=== PATIENT | male | born 1955 | race Caucasian/White ===

== ENCOUNTER 2020-01-11 08:43 | Emergency (ER) | payer OTHER, SELFPAY ==
[2020-01-11 08:53] VITALS: BMI 30.5
--- NOTE | 2020-01-11 08:55 | ED_ITS ---
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
[2020-01-11 08:57] VITALS: BP 176/65; PULSE 67; RESP 18; TEMP 36.8; O2SAT 95
[2020-01-11 09:08] VITALS: O2SAT 97
--- NOTE | 2020-01-11 09:10 | XR_ITS ---
WS: [id number] PORTABLE CHEST HISTORY: cough/congestion COMPARISON: None available. Lungs are clear and well expanded. No pleural effusion or pneumothorax. Cardiac size: Normal. Mediastinum/Aorta: Mild atherosclerosis aorta. No osseous abnormality seen. XR/XR chest 1V portable [id number] IMPRESSION: Mild atherosclerosis aorta. No pneumonia.
--- NOTE | 2020-01-11 09:20 | W.ED.URI ---
HPI - URI/Sore Throat General: Chief Complaint: General Medical Stated Complaint: COUGH AND SOB Time Seen by Provider: 01/11/20 08:59 Source: patient Mode of arrival: ambulatory Limitations: no limitations History of Present Illness: HPI Narrative: Patient is a very nice 64-year-old male who presents to ED today with complaints of a runny nose that initially began about a week ago. He is also been having some sinus pain/pressure. He states a few days later he began developing a productive cough with white phlegm. He states he does have a history of allergies. He has been using an albuterol inhaler as needed and states this has been helping. He was sick recently with similar symptoms about a month ago [facility] He has not been running fevers. He does not have any sick contacts. No recent travel outside the [facility]-states he did travel to [facility] recently for work ([employer]). MD elicited complaint: cough, rhinorrhea, nasal congestion and sinus pain Severity: mild Description of mucous: clear and other (white) Able to tolerate fluids by mouth: Yes Exacerbating factors: nothing Relieving factors: nothing Associated symptoms: Reports nasal congestion and sinus pain; Deny abdominal pain, chills, chest pain, diarrhea, epistaxis, ear or mastoid pain, fever(s), headache(s), nausea or vomiting Treatments prior to arrival: none Review of Systems Const: Denies: fever, chills, body aches, change in appetite, change in weight, fatigue or malaise Eyes: Denies: change in vision, blurry vision, photophobia, floaters or seeing flashes ENMT: Reports: nasal discharge, nasal congestion and facial/sinus pain; Denies: throat pain, enlarged tonsils, painful swallowing, hoarseness, oral sores/lesions, ear pain, ear discharge, nasal obstruction or nose bleeds Card: Denies: chest pain, palpitations, irregular heart rhythm, edema, swelling of feet/ankles, lightheadedness, syncope, pre-syncope, shortness of breath on exertion or shortness of breath when lying down Resp: Reports: productive cough and chest congestion; Denies: shortness of breath, wheezing, pain on inspiration or coughing up blood GI: Denies: abdominal pain, nausea, vomiting or diarrhea Musc: Denies: neck pain or back pain Skin/Breast: Denies: rash Neuro: Denies: headache, numbness in extremities, weakness in extremities or changes in sensation PFSH ED PFSH: Social History Smoking and tobacco status: former smoker Physical Exam Const: COMMON NORMALS: no apparent distress, average body habitus, oriented x3, no limitations, healthy appearing, alert and well nourished HENMT: COMMON NORMALS: normocephalic, head/scalp atraumatic, hearing grossly normal bilaterally, external ears normal, EAC's normal, TM's normal bilaterally, external nose normal, nasal mucous membranes and turbinates normal, moist oral mucous membranes and oropharynx normal HEAD & SCALP: normal to inspection, normocephalic and atraumatic FACE & SINUS: normal facial exam and sinuses nontender NOSE: external nose normal, nares normal, nasal mucous membranes and turbinates normal and other (nasal congestion) EXTERNAL EAR: Yes external ears normal EXTERNAL AUDITORY CANAL: EAC's normal TYMPANIC MEMBRANE: TM's normal bilaterally MOUTH: oral and palatal mucosa normal, lip normal and tongue normal THROAT: posterior oropharynx normal, tonsils normal and uvula midline Eye: COMMON NORMALS: PERRL, EOMs intact bilaterally and conjunctivae normal CONJUNCTIVA: Yes conjunctivae normal PUPIL: Yes PERRL Neck/C-Spine: COMMON NORMALS: no lymphadenopathy Resp: COMMON NORMALS: normal respiratory effort and clear to auscultation bilaterally AUSCULTATION: clear to auscultation bilaterally Cardio: COMMON NORMALS: regular rate and regular rhythm RATE: regular rate RHYTHM: regular rhythm Neuro: COMMON NORMALS: oriented x3 SENSORIUM/ORIENTATION: Yes alert Skin: COMMON NORMALS: no rashes or lesions noted GENERAL SKIN EXAM: no rashes or lesions noted Course Vital Signs: Vital signs: Vital Signs Temperature 98.2 F 01/11/20 08:57 Pulse Rate 67 01/11/20 08:57 Respiratory Rate 18 01/11/20 08:57 Blood Pressure 176/65 01/11/20 08:57 Pulse Oximetry 97 01/11/20 09:08 MDM - URI/Sore Throat MDM Narrative: Medical decision making narrative: Pt clinically looks well. His vitals are perfect. CXR with no acute disease. This is not an influenza/COVID-19 clinical picture. He doesn't met criteria for testing anyway. Will treat for allergies/URI and recommend self quarantine. Return to ED precautions given. Imaging Data^: CXR: Radiologist's impression: [address] [address] XRay Report Signed Patient: Malcolm Colon #: [id number] : 5Acct#:[id number] Age/Sex: 64 / MADM Date: 01/11/20 Loc: ERRoom/Bed: Attending Dr: Ordering Provider/Ordering MD: Ivis Dolan Date of Service: 01/11/20 Procedure(s): XR chest 1V portable [id number] Accession Number(s): [id number] Report Number: [id number] WS: [id number] PORTABLE CHEST HISTORY: cough/congestion COMPARISON: None available. Lungs are clear and well expanded. No pleural effusion or pneumothorax. Cardiac size: Normal. Mediastinum/Aorta: Mild atherosclerosis aorta. No osseous abnormality seen. XR/XR chest 1V portable [id number] IMPRESSION: Mild atherosclerosis aorta. No pneumonia. Dictated By:Stacey Elam DO Signed By:Stacey Elam DOSigned Date/Time:01/11/20927 DD/ 7 Discharge Plan Discharge Patient Disposition: Home, Self-Care Clinical Impression: Bronchitis Condition: Stable Prescriptions: New prednisone 10 mg tablet 60 mg PO DAILY 5 Days Qty: 30 RF: 0 albuterol sulfate 90 mcg/actuation HFA aerosol inhaler 2 inh INHALATION Q4H PRN (Reason: shortness of breath) Qty: 6.7 RF: 0 Claritin-D 24 Hour 10-240 mg tablet extended release 24 hr 1 tab PO DAILY Qty: 20 RF: 0 Discharge Orders: Discharge Order (Routine); Ordered 01/11/20 Ordered By: Ivis Dolan Referrals: Randall De La Rosa DO [Primary Care Provider] - Discharge Diet: Usual diet Discharge Activity: Increase activity as tolerated Patient Instructions: Upper Respiratory Infection (ED), Allergic Rhinitis (ED) Coding Level of Care Code ED Hospice Patient Care Secretary for Chg Fwd Exam Detailed
[2020-01-11 09:38] VITALS: BP 163/91; PULSE 65; O2SAT 95
== END 2020-01-11 09:38 | disposition home or self-care (01) ==
PROVIDERS: Emergency Provider Physician Assistant; Family Provider Emergency Medicine Emergency Medical Services; PCP Emergency Medicine Emergency Medical Services
DX: J40 Bronchitis, not specified as acute or chronic (principal); Z87.891 Personal history of nicotine dependence
CPT/HCPCS: 12345; 71045; 99281; 99282

== ENCOUNTER 2021-04-11 14:01 | Outpatient (CLI) | payer OTHER, SELFPAY ==
--- NOTE | 2021-04-11 14:15 | USCV_ITS ---
Malcolm Colon Age: 65 Gender: M : 1955 Exam Date: 04/11/2021 14:26 Ordering Phys: Tyra Ewing MD ([email or web address]) Technologist: Na Holly Exam Location: [facility] [place] Indication: non rheumatic BP: / HR: 71 Rhythm: Sinus Technical Quality: Adequate MEASUREMENTS (Male / Female) Normal Values 2D ECHO LV Diastolic Diameter PLAX 4.2 cm 4.2 - 5.9 / 3.9 - 5.3 cm LV Systolic Diameter PLAX 3.5 cm LV Chamber Size 3.3 cm IVS Diastolic Thickness 1.4 cm 0.6 - 1.0 / 0.6 - 0.9 cm IVS Systolic Thickness 2.0 cm LVPW Diastolic Thickness 1.2 cm 0.6 - 1.0 / 0.6 - 0.9 cm LVPW Systolic Thickness 1.5 cm RV Chamber Size 3.0 cm LVOT Diameter 2.1 cm LV Ejection Fraction 2D Teich 37.2 % LV Ejection Fraction MOD 2C 30.9 % LV Ejection Fraction 2C AL 33.0 % LA Diameter 4.0 cm LA Width 4.3 cm LA Height 4.2 cm RA Width 2.1 cm RA Height 3.9 cm Aorta at Sinotubular Diameter 3.5 cm M-MODE LV Diastolic Diameter MM 5.0 cm 4.2 - 5.9 / 3.9 - 5.3 cm LV Systolic Diameter MM 2.5 cm LV Ejection Fraction MM Teich 81.1 % IVS Diastolic Thickness MM 0.9 cm 0.6 - 1.0 / 0.6 - 0.9 cm IVS Systolic Thickness MM 1.7 cm LVPW Diastolic Thickness MM 1.5 cm 0.6 - 1.0 / 0.6 - 0.9 cm LVPW Systolic Thickness MM 2.6 cm Aortic Annulus Diameter 3.5 cm LA Ao Ratio MM 1.1 MV E Point Septal Separation 0.5 cm DOPPLER AV Peak Velocity 300.0 cm/s LVOT Peak Velocity 143.7 cm/s AV Area Cont Eq vti 1.6 cm squared AV Area Cont Eq pk 1.6 cm squared MV Area PHT 3.4 cm squared Mitral E to A Ratio 1.1 MV E' Velocity 46.5 cm/s Mitral E to MV E' Ratio 11.2 Mitral E to LV E' Lateral Ratio 14.1 Mitral E to LV E' Septal Ratio 9.4 TR Peak Velocity 222.8 cm/s TR Peak Gradient 19.9 mmHg TR Mean Velocity 182.0 cm/s TR Mean Gradient 14.0 mmHg TR Velocity Time Integral 68.6 cm TV Peak E Velocity 57.0 cm/s Right Atrial Pressure 3.0 mmHg Pulmonary Artery Systolic Pressu 22.9 mmHg PV Peak Velocity 84.0 cm/s RV Acceleration Time 0.1 s RV Ejection Time 0.3 s RV AcT/ET 0.4 FINDINGS Left Ventricle Normal left ventricular size and systolic function, EF 70%. No regional wall motion abnormalities. Mild left ventricular hypertrophy. Right Ventricle The right ventricle is normal in size and function. Right Atrium The right atrium is normal in size. Left Atrium The left atrium is normal in size. Mitral Valve No gross abnormalities noted Aortic Valve Mild aortic valve stenosis, mean gradient 16.5 mmHg, FAUSTO 1.6 cm squared. Mild aortic valve regurgitation. Peak velocity across the aortic valve is 3.07 m/s with a peak gradient of 38 and a mean gradient of 17 mmHg Tricuspid Valve Trace tricuspid valve regurgitation. Pulmonic Valve Pulmonic valve not well visualized. Pericardium Normal pericardium without effusion. Aorta Normal ascending aorta dimension. CONCLUSIONS Normal left ventricular size and systolic function, EF 70%. No regional wall motion abnormalities. Mild left ventricular hypertrophy. Mild aortic valve stenosis, mean gradient 16.5 mmHg, FAUSTO 1.6 cm squared. Mild aortic valve regurgitation. Peak velocity across the aortic valve is 3.07 m/s with a peak gradient of 38 and a mean gradient of 17 mmHg. Trace tricuspid valve regurgitation. There is no pericardial effusion. There are no intracardiac masses. Compared to the study from 06/16/2019, there is slight increase in the gradient across the aortic valve Dr Tyra Ewing MD [facility] (Electronically Signed) Final Date: 11 April 2021 17:07 S
--- NOTE | 2021-04-11 15:00 | USCV_ITS ---
Isaiah Malcolm Age: 65 Gender: M : 1955 Exam Date: 04/11/2021 14:46 Ordering Phys: Tyra Ewing MD ([email or web address] Technologist: Na Holly [place] [facility] [place]ication: STENOSIS OR OCCLUSION OF CAROTID ARTERIES Risk Factors: Previous Vascular Surgery: Right Brachial BP: / Left Brachial BP: / Right Left Velocity (cm/s) Spectral Plaque Velocity (cm/s) Spectral Plaque Syst/Diast Broadening Syst/Diast Broadening 109.20/32.00 Prox CCA 90.40 / 26.50 64.90/ 22.60 Mid CCA 73.70 / 21.60 79.20/ 28.70 Distal CCA 86.40 / 26.50 81.40/ 21.10 Prox ICA 63.40 / 27.70 77.60/ 21.10 Mid ICA 53.80 / 17.90 82.70/ 23.60 Distal ICA 54.60 / 24.30 152.30 ECA 83.50 1.28 ICA/CCA 0.86 Antegrade Vertebral Antegrade 33.70/ 9.90 cm/s 31.30/ 13.00 cm/s Tri Subclavian Tri 60.90 96.90 FINDINGS Minimal to moderate heterogeneous plaques at the bifurcations bilaterally. Intimal thickening and minimal plaques in the common carotid arteries bilaterally. Antegrade flow in the vertebral arteries bilaterally. Normal Doppler flow velocities in the external carotid and subclavian arteries bilaterally CONCLUSIONS Minimal to moderate heterogeneous plaques at the bifurcations bilaterally suggesting less than 50% stenosis. Intimal thickening and minimal plaques in the common carotid arteries bilaterally. Dr Tyra Ewing MD [facility] (Electronically Signed) Final Date: 12 April 2021 12:49 S
== END 2021-04-11 14:02 | disposition home or self-care (01) ==
PROVIDERS: PCP Emergency Medicine Emergency Medical Services; Visit Provider Internal Medicine Cardiovascular Disease
DX: I65.23 Occlusion and stenosis of bilateral carotid arteries (principal); I35.0 Nonrheumatic aortic (valve) stenosis
CPT/HCPCS: 80061; 93306; 93880

== ENCOUNTER 2021-07-14 08:34 | Outpatient (CLI) | payer OTHER, SELFPAY ==
--- NOTE | 2021-07-14 08:56 | MR_ITS ---
WS: [id number] MRI LUMBAR SPINE NONCONTRAST TECHNIQUE: Sagittal T1, T2 and STIR imaging. Axial T1 and T2 imaging. CLINICAL INFORMATION: CHRONIC BACK PAIN COMPARISON: None. FINDINGS: Mild lumbar curve. No acute compression. Disc space narrowing worse at L4-5. No high-grade central ca nal stenosis. L1-L2: Tiny left foraminal protrusion. Mild left foraminal narrowing. Mild facet arthropathy. L2-L3: Mild annular bulging with slight effacement of the ventral thecal sac. Small left foraminal pr otrusion with mild left foraminal narrowing. Right foramen is patent. Moderate facet arthropathy. L3-L4: Mild annular bulging. Spinal canal is patent. Moderate facet arthropathy. Foramen are patent. L4-L5: Mild annular bulging. Impingement on the traversing right L5 nerve root in the subarticular re cess. Right eccentric disc osteophyte complex with moderate right foraminal narrowing. Left foramen i s patent. Moderate facet arthropathy. L5-S1: Disc osteophytic ridging eccentric to the right. Spinal canal and foramen are patent. Mild fac et arthropathy. Visualized pelvic bony structures: Normal. Paravertebral soft tissues: Normal. MR/MR lumbar spine wo con* [id number] IMPRESSION: 1. Right eccentric disc osteophyte complex L4-5 impinges the traversing right L5 nerve root in the subarticular recess. Recommend correlation for right L5 ne rve root symptoms. 2. Right foraminal protrusion L4-5 contacts the exiting right L4 nerve root. R ecommend correlation for right L4 nerve root symptoms. 3. Tiny left foraminal protrusions L1-2 and L2-3 with mild left foraminal narr owing at these levels respectively. 4. Moderate facet arthropathy L3-L4 and L4-L5.
== END 2021-07-14 08:35 | disposition home or self-care (01) ==
PROVIDERS: PCP Emergency Medicine Emergency Medical Services; Visit Provider Emergency Medicine Emergency Medical Services
DX: Z01.89 Encounter for other specified special examinations (principal); M54.9 Dorsalgia, unspecified
CPT/HCPCS: 72148

== ENCOUNTER → 2021-07-30 09:20 | Outpatient (BNVA) | payer OTHER, SELFPAY | PROVIDERS: PCP Emergency Medicine Emergency Medical Services; Referring Provider Emergency Medicine Emergency Medical Services; Visit Provider Anesthesiology Pain Medicine | DX: G89.29 Other chronic pain (principal); M51.16 Intervertebral disc disorders with radiculopathy, lumbar region; M47.816 Spondylosis without myelopathy or radiculopathy, lumbar region; M79.604 Pain in right leg; I10 Essential (primary) hypertension; E78.2 Mixed hyperlipidemia | CPT/HCPCS: 99205 ==

== ENCOUNTER → 2021-08-05 12:42 | Outpatient (BNVA) | payer OTHER, SELFPAY | PROVIDERS: PCP Emergency Medicine Emergency Medical Services; Visit Provider Anesthesiology Pain Medicine | DX: G89.29 Other chronic pain (principal); M54.16 Radiculopathy, lumbar region | CPT/HCPCS: 64483; 64484; J1100; J3490 ==

== ENCOUNTER → 2021-08-19 12:46 | Outpatient (BNVA) | payer OTHER, SELFPAY | PROVIDERS: PCP Emergency Medicine Emergency Medical Services; Visit Provider Anesthesiology Pain Medicine | DX: G89.29 Other chronic pain (principal); M54.16 Radiculopathy, lumbar region | CPT/HCPCS: 64483; 64484; J1100; J3490 ==

== ENCOUNTER → 2021-09-02 09:53 | Outpatient (BNVA) | payer OTHER, SELFPAY | PROVIDERS: PCP Emergency Medicine Emergency Medical Services; Visit Provider Anesthesiology Pain Medicine | DX: G89.29 Other chronic pain (principal); M51.16 Intervertebral disc disorders with radiculopathy, lumbar region; M47.816 Spondylosis without myelopathy or radiculopathy, lumbar region | CPT/HCPCS: 99213 ==

== ENCOUNTER → 2021-09-16 14:16 | Outpatient (BNVA) | payer OTHER, SELFPAY | PROVIDERS: PCP Emergency Medicine Emergency Medical Services; Visit Provider Anesthesiology Pain Medicine | DX: M70.71 Other bursitis of hip, right hip (principal); Y93.9 Activity, unspecified | CPT/HCPCS: 20610; 77002; J1030; J3490 ==

== ENCOUNTER → 2021-09-30 11:16 | Outpatient (BNVA) | payer OTHER, SELFPAY | PROVIDERS: PCP Emergency Medicine Emergency Medical Services; Visit Provider Anesthesiology Pain Medicine | DX: G89.29 Other chronic pain (principal); M51.16 Intervertebral disc disorders with radiculopathy, lumbar region; M47.816 Spondylosis without myelopathy or radiculopathy, lumbar region; M79.604 Pain in right leg; Z87.891 Personal history of nicotine dependence | CPT/HCPCS: 99212 ==

== ENCOUNTER 2021-10-29 09:33 | Outpatient (CLI) | payer OTHER, SELFPAY ==
--- NOTE | 2021-10-29 | CT_ITS ---
WS: [id number] CT CHEST WITH INTRAVENOUS CONTRAST HISTORY: PULMONARY NODULES TECHNIQUE: Contiguous 5 mm axial imaging performed on the thorax. Coronal and sagittal reformats are submitted. All CT scans at [facility] use at least one of these dose optimization techniques: automated exposure control; mA and/or kV adjustment per patient size (includes targeted exams where dose is matched to clinical indication); or iterative reconstruction. CONTRAST: Omnipaque 300; 95 mL IV. DLP: 1069.26 mGycm COMPARISON: Chest radiograph 01/11/2020. Lungs and central airway: There are a few tiny micronodules throughout both lungs. No suspicious or e nlarged mass or nodule. There are changes of mild emphysema. Pleura: Normal. No pleural effusion. Heart and pericardium: Normal size heart with no pericardial effusion. Mediastinum and scarlet: Single indeterminate 10 mm RIGHT hilar lymph node. No mediastinal widening. Vessels: Mild atherosclerosis aorta. Mild pulmonary hypertension. Chest wall and lower neck: No soft tissue masses. Upper abdomen: Mildly contracted gallbladder. Visualized liver is normal. Osseous structures: No destructive process. CT/CT chest w con* [id number] IMPRESSION: 1. No suspicious pulmonary mass or adenopathy. No prior studies or history sharon ilable to indicate location of mass. 2. Mild emphysema.
[2021-10-29 10:38] LABS: Blood Urea Nitrogen 18 mg/dL (8-23)
[2021-10-29] MEDS: iohexol 300 mg/mL 100 mL Btl IV (14:51)
== END 2021-10-29 09:34 | disposition home or self-care (01) ==
PROVIDERS: PCP Emergency Medicine Emergency Medical Services; Visit Provider Emergency Medicine Emergency Medical Services
DX: R91.1 Solitary pulmonary nodule (principal); J43.9 Emphysema, unspecified
CPT/HCPCS: 71260; 82565; 84520; Q9967

== ENCOUNTER → 2022-01-07 10:15 | Outpatient (BNVA) | payer OTHER, SELFPAY | PROVIDERS: PCP Emergency Medicine Emergency Medical Services; Referring Provider Emergency Medicine Emergency Medical Services; Visit Provider Anesthesiology Pain Medicine | DX: G89.29 Other chronic pain (principal); M51.16 Intervertebral disc disorders with radiculopathy, lumbar region; M47.816 Spondylosis without myelopathy or radiculopathy, lumbar region; M25.551 Pain in right hip; M79.604 Pain in right leg; Z87.891 Personal history of nicotine dependence | CPT/HCPCS: 99214 ==

== ENCOUNTER → 2022-01-12 14:00 | Outpatient (BNVA) | payer OTHER, SELFPAY | PROVIDERS: PCP Emergency Medicine Emergency Medical Services; Visit Provider Anesthesiology Pain Medicine | DX: M25.551 Pain in right hip (principal); Y93.9 Activity, unspecified; F17.210 Nicotine dependence, cigarettes, uncomplicated; M70.71 Other bursitis of hip, right hip | CPT/HCPCS: 20610; 77002; J1030; J3490 ==

== ENCOUNTER → 2022-01-26 10:08 | Outpatient (BNVA) | payer OTHER, SELFPAY | PROVIDERS: PCP Emergency Medicine Emergency Medical Services; Visit Provider Anesthesiology Pain Medicine | DX: G89.29 Other chronic pain (principal); M51.16 Intervertebral disc disorders with radiculopathy, lumbar region; M47.816 Spondylosis without myelopathy or radiculopathy, lumbar region; M79.604 Pain in right leg; Z87.891 Personal history of nicotine dependence | CPT/HCPCS: 99214 ==

== ENCOUNTER → 2022-02-03 13:52 | Outpatient (BNVA) | payer OTHER, SELFPAY | PROVIDERS: PCP Emergency Medicine Emergency Medical Services; Visit Provider Anesthesiology Pain Medicine | DX: G89.29 Other chronic pain (principal); Z87.891 Personal history of nicotine dependence; M47.816 Spondylosis without myelopathy or radiculopathy, lumbar region | CPT/HCPCS: 64493; 64494; 64495; J3490 ==

== ENCOUNTER → 2022-02-17 11:44 | Outpatient (BNVA) | payer OTHER, SELFPAY | PROVIDERS: PCP Emergency Medicine Emergency Medical Services; Visit Provider Anesthesiology Pain Medicine | DX: G89.29 Other chronic pain (principal); M51.16 Intervertebral disc disorders with radiculopathy, lumbar region; M47.816 Spondylosis without myelopathy or radiculopathy, lumbar region; M79.604 Pain in right leg; Z87.891 Personal history of nicotine dependence | CPT/HCPCS: 99212 ==

== ENCOUNTER → 2022-03-19 15:17 | Outpatient (BNVA) | payer OTHER, SELFPAY | PROVIDERS: PCP Emergency Medicine Emergency Medical Services; Visit Provider Internal Medicine Cardiovascular Disease | DX: I65.23 Occlusion and stenosis of bilateral carotid arteries (principal); I35.0 Nonrheumatic aortic (valve) stenosis; I10 Essential (primary) hypertension; G47.33 Obstructive sleep apnea (adult) (pediatric); E78.2 Mixed hyperlipidemia; Z99.89 Dependence on other enabling machines and devices; Z87.891 Personal history of nicotine dependence | CPT/HCPCS: 99214 ==

== ENCOUNTER 2022-06-01 07:24 | Outpatient (CLI) | payer OTHER, SELFPAY ==
--- NOTE | 2022-06-01 07:35 | USCV_ITS ---
Isaiah Malcolm Age: 66 Gender: M : 1955 Exam Date: 06/01/2022 07:54 Ordering Phys: Randall De La Rosa DO Technologist: SAVANNAH [place] [facility] [place]: aaa HISTORY: Diameter (cm) AP x Transverse x Length Velocity (cm/s) Waveform Prox Aorta: 1.83 x 2.21 x 81.80 Biphasic Mid Aorta: 1.99 x 2.07 x 93.30 Biphasic Distal Aorta: 2.74 x 2.96 x 80.00 Biphasic Right Iliac Prox: 1.23 x 1.32 x 113.80 Triphasic Left Iliac Prox: 0.90 x 1.39 x 107.70 Triphasic Stent Prox Landing x x Aneurysmal Sac Max x x Lt Lat Sac Dim Rt Lat Sac Dim Stent Dist Landing x x Right Iliac Stent x x Left Iliac Stent x x Right Renal Art Left Renal Art FINDINGS: Infrarenal aorta measuring 2.74 x 2.96 cm Normal dimensions of the proximal common iliac arteries bilaterally Normal Doppler velocities in the aorta and the iliac arteries. CONCLUSIONS 1. Minimally dilated infrarenal any abdominal aorta, measuring 2.74 x 2.96 cm. 2. Normal proximal common iliac artery dimensions. 3. No evidence of any significant stenosis in the abdominal aorta or in the proximal common iliac arteries, based on the Doppler flow velocities. No similar previous studies are available for comparison Dr Tyra Ewing MD [facility] (Electronically Signed) Final Date: 01 June 2022 22:24 S
== END 2022-06-01 07:25 | disposition home or self-care (01) ==
LOC: RAD 07:25
PROVIDERS: PCP Emergency Medicine Emergency Medical Services; Visit Provider Emergency Medicine Emergency Medical Services
DX: I71.4 Abdominal aortic aneurysm, without rupture (principal)
CPT/HCPCS: 76706

== ENCOUNTER 2022-08-18 11:35 | Outpatient (CLI) | payer OTHER, SELFPAY ==
--- NOTE | 2022-08-18 11:52 | XRR_ITS ---
PROCEDURE INFORMATION: Exam: XR Cervical Spine Exam date and time: 08/18/2022 11:54 AM Age: 66 years old Clinical indication: Radicular pain (radiculopathy); Cervical region; Additional info: M54.12 - radiculopathy, cervical region TECHNIQUE: Imaging protocol: Radiologic exam of the cervical spine. Views: 2 or 3 views. COMPARISON: CT chest w con* [id number] 10/29/2021 10:36 AM FINDINGS: Bones/joints: Ligamentum nuchae ossification/calcification. Moderate C3-C4, C4-C5, C5-C6 C6-C7 degenerative disc disease and spondylosis with multilevel significant bilateral facet arthropathy. Soft tissues: Unremarkable. XR/XR cervical spine 3V* [id number] IMPRESSION: Moderate C3-C4, C4-C5, C5-C6 C6-C7 degenerative disc disease and spondylosis with multilevel significant bilateral facet arthropathy.
--- NOTE | 2022-08-18 11:52 | XRR_ITS ---
PROCEDURE INFORMATION: Exam: XR Bilateral Hips Exam date and time: 08/18/2022 11:54 AM Age: 66 years old Clinical indication: Hip pain; Bilateral; Additional info: M16.9 - osteoarthritis of hip, unspecified TECHNIQUE: Imaging protocol: Radiologic exam of the bilateral hips. Views: 2 views of hips with pelvis when performed. COMPARISON: MR lumbar spine wo con* [id number] 07/14/2021 9:15 AM FINDINGS: Bones/joints: Unremarkable. No acute fracture. Soft tissues: Unremarkable. XR/XR hip BI 2V wo/w pel [id number] IMPRESSION: No acute findings.
== END 2022-08-18 11:36 | disposition home or self-care (01) ==
PROVIDERS: PCP Emergency Medicine Emergency Medical Services; Visit Provider Anesthesiology Pain Medicine
DX: G89.29 Other chronic pain; M16.9 Osteoarthritis of hip, unspecified; M50.31 Other cervical disc degeneration, high cervical region; M47.812 Spondylosis without myelopathy or radiculopathy, cervical region; M51.16 Intervertebral disc disorders with radiculopathy, lumbar region; M47.816 Spondylosis without myelopathy or radiculopathy, lumbar region; M79.604 Pain in right leg
CPT/HCPCS: 72040; 73521; 99214

== ENCOUNTER → 2022-09-14 08:58 | Outpatient (BNVA) | payer OTHER, SELFPAY | PROVIDERS: PCP Emergency Medicine Emergency Medical Services; Visit Provider Anesthesiology Pain Medicine | DX: G89.29 Other chronic pain (principal); M70.71 Other bursitis of hip, right hip; M51.16 Intervertebral disc disorders with radiculopathy, lumbar region; M47.816 Spondylosis without myelopathy or radiculopathy, lumbar region; M79.604 Pain in right leg; F17.210 Nicotine dependence, cigarettes, uncomplicated; F17.220 Nicotine dependence, chewing tobacco, uncomplicated; Y93.9 Activity, unspecified | CPT/HCPCS: 99214 ==

== ENCOUNTER → 2022-09-29 10:29 | Outpatient (BNVA) | payer OTHER, SELFPAY | PROVIDERS: PCP Emergency Medicine Emergency Medical Services; Visit Provider Anesthesiology Pain Medicine | DX: G89.29 Other chronic pain; M51.16 Intervertebral disc disorders with radiculopathy, lumbar region; M47.816 Spondylosis without myelopathy or radiculopathy, lumbar region; M70.71 Other bursitis of hip, right hip; Y93.9 Activity, unspecified; M60.89 Other myositis, multiple sites | CPT/HCPCS: 20553; 99212 ==

== ENCOUNTER → 2022-10-01 14:02 | Outpatient (BNVA) | payer OTHER, SELFPAY | PROVIDERS: PCP Emergency Medicine Emergency Medical Services; Visit Provider Internal Medicine Cardiovascular Disease | DX: I35.0 Nonrheumatic aortic (valve) stenosis (principal); I65.23 Occlusion and stenosis of bilateral carotid arteries; G47.33 Obstructive sleep apnea (adult) (pediatric); I95.9 Hypotension, unspecified; E78.2 Mixed hyperlipidemia; F17.220 Nicotine dependence, chewing tobacco, uncomplicated | CPT/HCPCS: 99214 ==

== ENCOUNTER → 2022-10-29 11:49 | Outpatient (BNVA) | payer OTHER, SELFPAY | PROVIDERS: PCP Emergency Medicine Emergency Medical Services; Visit Provider Anesthesiology Pain Medicine | DX: G89.29 Other chronic pain (principal); M51.16 Intervertebral disc disorders with radiculopathy, lumbar region; M47.816 Spondylosis without myelopathy or radiculopathy, lumbar region; M70.71 Other bursitis of hip, right hip; M25.59 Pain in other specified joint; M54.12 Radiculopathy, cervical region | CPT/HCPCS: 72050; 99214 ==

== ENCOUNTER 2022-11-05 10:47 | Outpatient (CLI) | payer OTHER, SELFPAY ==
--- NOTE | 2022-11-05 | MR_ITS ---
WS: [id number] MRI CERVICAL SPINE NONCONTRAST TECHNIQUE: Sagittal T1, T2 and STIR imaging. Axial T2, gradient, and fiesta imaging. CLINICAL INFORMATION: neck pain back pain COMPARISON: None. FINDINGS: Mild cervical curve. Straightening of the normal cervical lordosis. Mild disc bulging C3-C4 C4-C5 and C5-C6. Cord signal appears normal. C2-C3: Mild bilateral foraminal narrowing. Mild facet arthropathy. Spinal canal is patent. C3-C4: Disc osteophyte complex with slight indentation on cervical cord. Mild/moderate central canal stenosis. Moderate LEFT greater than RIGHT bony foraminal narrowing. Moderate facet arthropathy. C4-C5: RIGHT pericentral disc osteophyte complex with indentation on the RIGHT ventral cervical cord. Moderate central canal stenosis. Moderate RIGHT greater than LEFT bony foraminal narrowing. C5-C6: Disc osteophyte complex with endplate ridging. Moderate LEFT and mild to moderate RIGHT bony f oraminal narrowing. Mild central canal stenosis. Moderate facet arthropathy. C6-C7: Disc osteophyte complex with endplate ridging. Moderate LEFT and mild RIGHT bony foraminal timothy rowing. Moderate facet arthropathy. Spinal canal is patent. C7-T1: Disc osteophytic ridging. Moderate LEFT and mild RIGHT bony foraminal narrowing. Spinal canal is patent. Visualized brain stem structures: Normal. Prevertebral soft tissues: Normal. MR/MR cervical spin wo con* [id number] IMPRESSION: 1. Straightening of the normal cervical lordosis. Cord signal is normal. 2. Mild to moderate central canal stenosis C3-C4 and moderate central canal st enosis C4-C5 with slight indentation on cervical cord. 3. Mild central canal stenosis C5-C6. 4. Multilevel moderate bony foraminal narrowing worse at bilateral C3-C4, RIGH T C4-C5, LEFT C5-C6, LEFT C6-C7, and LEFT C7-T1. 5. Moderate facet arthropathy C3-C4, C4-C5, C5-C6 and C6-C7.
--- NOTE | 2022-11-05 | MR_ITS ---
WS: [id number] MRI THORACIC SPINE WITHOUT CONTRAST TECHNIQUE: Sagittal T1, T2 and STIR imaging. Axial T2 imaging. Noncontrast imaging obtained. CLINICAL INFORMATION: neck pain back pain COMPARISON: None. FINDINGS: Moderate thoracic kyphosis. No acute compression. Mild chronic anterior wedging in the mid thoracic s pine. Endplate Schmorl's nodes in the mid thoracic spine. Prominent central disc protrusion at T5-T6 with indentation on the thoracic cord. Mild to moderate ce ntral canal stenosis. Cord signal appears normal. Shallow RIGHT pericentral protrusion T7-T8 with sli ght indentation on the thoracic cord. Spinal canal remains patent. Moderate facet arthropathy lower t horacic spine. Tiny shallow central protrusion T9-T10. Normal caliber thoracic aorta. Adrenal glands are normal. Normal paravertebral soft tissues. MR/MR thoracic spin wo con* [id number] IMPRESSION: 1. Moderate thoracic kyphosis. No acute compression. 2. Prominent central disc protrusion T5-T6 with indentation on the thoracic co rd with mild to moderate central canal stenosis. Cord signal appears normal. 3. Shallow RIGHT pericentral protrusion T7-T8 with slight indentation on the t horacic cord. 4. Shallow central protrusion T9-T10. 5. Moderate facet arthropathy lower thoracic spine.
== END 2022-11-05 10:48 | disposition home or self-care (01) ==
PROVIDERS: PCP Emergency Medicine Emergency Medical Services; Visit Provider Emergency Medicine Emergency Medical Services
DX: Z01.89 Encounter for other specified special examinations (principal); M47.894 Other spondylosis, thoracic region; M40.294 Other kyphosis, thoracic region; M47.892 Other spondylosis, cervical region; M48.02 Spinal stenosis, cervical region
CPT/HCPCS: 72141; 72146

== ENCOUNTER → 2022-11-30 10:21 | Outpatient (BNVA) | payer OTHER, SELFPAY | PROVIDERS: PCP Emergency Medicine Emergency Medical Services; Visit Provider Anesthesiology Pain Medicine | DX: M25.551 Pain in right hip (principal); M25.552 Pain in left hip; G89.29 Other chronic pain; M51.16 Intervertebral disc disorders with radiculopathy, lumbar region; M47.816 Spondylosis without myelopathy or radiculopathy, lumbar region; M70.71 Other bursitis of hip, right hip; M54.2 Cervicalgia; Y93.9 Activity, unspecified | CPT/HCPCS: 73522; 99214 ==

== ENCOUNTER → 2023-02-24 09:08 | Outpatient (BNVA) | payer OTHER, SELFPAY | PROVIDERS: PCP Emergency Medicine Emergency Medical Services; Visit Provider Nurse Practitioner Family | DX: L81.4 Other melanin hyperpigmentation (principal); D22.5 Melanocytic nevi of trunk; Z71.89 Other specified counseling; B07.8 Other viral warts; L82.1 Other seborrheic keratosis; L82.0 Inflamed seborrheic keratosis | CPT/HCPCS: 17110; 99213 ==

== ENCOUNTER → 2023-03-16 10:04 | Outpatient (BNVA) | payer OTHER, SELFPAY | PROVIDERS: PCP Emergency Medicine Emergency Medical Services; Visit Provider Nurse Practitioner Family | DX: L81.4 Other melanin hyperpigmentation (principal); B07.8 Other viral warts; D69.2 Other nonthrombocytopenic purpura; L82.1 Other seborrheic keratosis | CPT/HCPCS: 17110; 99213 ==

== ENCOUNTER → 2023-03-31 10:41 | Outpatient (BNVA) | payer OTHER, SELFPAY | PROVIDERS: PCP Emergency Medicine Emergency Medical Services; Visit Provider Nurse Practitioner Family | DX: B07.8 Other viral warts (principal); L57.0 Actinic keratosis; L57.8 Other skin changes due to chronic exposure to nonionizing radiation | CPT/HCPCS: 17000; 17003; 17110; 99213 ==

== ENCOUNTER → 2023-04-15 14:48 | Outpatient (BNVA) | payer OTHER, SELFPAY | PROVIDERS: PCP Emergency Medicine Emergency Medical Services; Visit Provider Internal Medicine Cardiovascular Disease | DX: I95.1 Orthostatic hypotension (principal); E78.2 Mixed hyperlipidemia; I10 Essential (primary) hypertension; G47.33 Obstructive sleep apnea (adult) (pediatric); I35.0 Nonrheumatic aortic (valve) stenosis; I65.23 Occlusion and stenosis of bilateral carotid arteries; R06.02 Shortness of breath; F17.210 Nicotine dependence, cigarettes, uncomplicated; F17.220 Nicotine dependence, chewing tobacco, uncomplicated | CPT/HCPCS: 99214 ==

== ENCOUNTER → 2023-04-30 10:03 | Outpatient (BNVA) | payer OTHER, SELFPAY | PROVIDERS: PCP Emergency Medicine Emergency Medical Services; Visit Provider Nurse Practitioner Family | DX: L57.8 Other skin changes due to chronic exposure to nonionizing radiation (principal); B07.8 Other viral warts | CPT/HCPCS: 17110; 99213 ==

== ENCOUNTER 2023-05-06 09:22 | Outpatient (CLI) | payer OTHER, SELFPAY ==
--- NOTE | 2023-05-06 11:00 | USCV_ITS ---
Isaiah Malcolm Age: 67 Gender: M : 1955 Exam Date: 05/06/2023 09:57 Ordering Phys: Tyra Ewing MD ([email or web address]) Technologist: Milly Lewis Exam Location: [facility] [place] Indication: , dizziness BP: 134 / 80 HR: 54 Rhythm: Sinus Technical Quality: Adequate MEASUREMENTS (Male / Female) Normal Values 2D ECHO LV Diastolic Diameter PLAX 2.9 cm 4.2 - 5.9 / 3.9 - 5.3 cm LV Systolic Diameter PLAX 2.2 cm IVS Diastolic Thickness 1.9 cm 0.6 - 1.0 / 0.6 - 0.9 cm IVS Systolic Thickness 1.9 cm LVPW Diastolic Thickness 1.3 cm 0.6 - 1.0 / 0.6 - 0.9 cm LVPW Systolic Thickness 1.6 cm LVOT Diameter 2.1 cm LV Ejection Fraction 2D Teich 51.2 % LV Ejection Fraction MOD 2C 61.2 % LV Ejection Fraction 2C AL 61.5 % LA Diameter 3.8 cm LA Width 3.4 cm LA Height 4.5 cm RA Width 2.9 cm RA Height 5.5 cm Aorta at Sinotubular Diameter 3.2 cm IVC Diameter 1.3 cm M-MODE Aortic Annulus Diameter 3.3 cm LA Ao Ratio MM 1.2 MV E Point Septal Separation 0.5 cm DOPPLER AV Peak Velocity 255.8 cm/s LVOT Peak Velocity 155.0 cm/s AV Area Cont Eq vti 2.0 cm squared AV Area Cont Eq pk 2.0 cm squared MV Peak Velocity 88.0 cm/s MV Area PHT 3.6 cm squared Mitral E to A Ratio 1.1 MV E' Velocity 42.0 cm/s Mitral E to MV E' Ratio 12.2 Mitral E to LV E' Lateral Ratio 12.4 Mitral E to LV E' Septal Ratio 12.0 TR Peak Velocity 217.7 cm/s TR Peak Gradient 19.0 mmHg Right Atrial Pressure 5.0 mmHg Pulmonary Artery Systolic Pressu 24.0 mmHg PV Peak Velocity 110.0 cm/s RV Acceleration Time 0.2 s RV Ejection Time 0.4 s RV AcT/ET 0.5 FINDINGS Left Ventricle Normal left ventricular size and systolic function, EF 60 %. Mild left ventricular hypertrophy. No regional wall motion abnormalities. Right Ventricle The right ventricle is normal in size and function. Right Atrium The right atrium is normal in size. Left Atrium Mildly increased left atrial size. Mitral Valve No gross abnormalities noted Aortic Valve Mild aortic valve calcification. Trace to mild aortic valve regurgitation. Mild aortic valve stenosis, mean gradient 12.3 mmHg, FAUSTO 2 cm squared. Peak velocity of 2.63 m/s with a peak gradient of 40 mmHg Tricuspid Valve Trace tricuspid valve regurgitation. Pulmonic Valve Pulmonic valve not well visualized. Pericardium No pericardial effusion. Aorta Normal aortic annulus size. IVC Inferior vena cava not visualized. CONCLUSIONS Normal left ventricular size and systolic function, EF 60 %. Mild left ventricular hypertrophy. No regional wall motion abnormalities. Mildly increased left atrial size. Mild aortic valve calcification. Trace to mild aortic valve regurgitation. Mild aortic valve stenosis, mean gradient 12.3 mmHg, FAUSTO 2 cm squared. Peak velocity of 2.63 m/s with a peak gradient of 40 mmHg. Trace tricuspid valve regurgitation. Estimated pulmonary artery peak systolic pressure 24 mmHg There is no pericardial effusion. There are no intracardiac masses. Compared to the study from 04/11/2021, there may not be a significant change Dr Tyra Ewing MD [facility] (Electronically Signed) Final Date: 11 May 2023 09:30 S
== END 2023-05-06 09:23 | disposition home or self-care (01) ==
PROVIDERS: PCP Emergency Medicine Emergency Medical Services; Visit Provider Internal Medicine Cardiovascular Disease
DX: I35.0 Nonrheumatic aortic (valve) stenosis (principal); R42 Dizziness and giddiness; I51.7 Cardiomegaly; I35.8 Other nonrheumatic aortic valve disorders; I35.1 Nonrheumatic aortic (valve) insufficiency
CPT/HCPCS: 93306

== ENCOUNTER → 2023-06-08 07:56 | Outpatient (BNVA) | payer OTHER, SELFPAY | PROVIDERS: PCP Emergency Medicine Emergency Medical Services; Visit Provider Nurse Practitioner Family | DX: B07.8 Other viral warts (principal); D22.5 Melanocytic nevi of trunk; L57.8 Other skin changes due to chronic exposure to nonionizing radiation; F17.210 Nicotine dependence, cigarettes, uncomplicated | CPT/HCPCS: 17110; 99213 ==

== ENCOUNTER → 2023-10-08 08:00 | Outpatient (BNVA) | payer OTHER, SELFPAY | PROVIDERS: PCP Emergency Medicine Emergency Medical Services; Visit Provider Nurse Practitioner Family | DX: L82.0 Inflamed seborrheic keratosis (principal); D22.5 Melanocytic nevi of trunk; L57.0 Actinic keratosis; L81.4 Other melanin hyperpigmentation | CPT/HCPCS: 17000; 17110; 99213 ==

== ENCOUNTER → 2023-10-27 13:41 | Outpatient (BNVA) | payer OTHER, SELFPAY | PROVIDERS: PCP Emergency Medicine Emergency Medical Services; Visit Provider Internal Medicine Cardiovascular Disease | DX: I35.0 Nonrheumatic aortic (valve) stenosis (principal); E78.2 Mixed hyperlipidemia; I10 Essential (primary) hypertension; I65.23 Occlusion and stenosis of bilateral carotid arteries; I95.1 Orthostatic hypotension; F17.210 Nicotine dependence, cigarettes, uncomplicated; F17.220 Nicotine dependence, chewing tobacco, uncomplicated | CPT/HCPCS: 99214 ==

== ENCOUNTER → 2023-12-01 10:21 | Outpatient (BNVA) | payer OTHER, SELFPAY | PROVIDERS: PCP Emergency Medicine Emergency Medical Services; Visit Provider Nurse Practitioner Family | DX: B07.8 Other viral warts (principal); L57.8 Other skin changes due to chronic exposure to nonionizing radiation; L82.1 Other seborrheic keratosis; D22.5 Melanocytic nevi of trunk; L81.4 Other melanin hyperpigmentation; L57.0 Actinic keratosis | CPT/HCPCS: 17000; 17110; 99213 ==

== ENCOUNTER → 2023-12-30 09:05 | Outpatient (BNVA) | payer OTHER, SELFPAY | PROVIDERS: PCP Emergency Medicine Emergency Medical Services; Visit Provider Nurse Practitioner Family | DX: B07.8 Other viral warts (principal); L57.8 Other skin changes due to chronic exposure to nonionizing radiation; L81.4 Other melanin hyperpigmentation; L82.0 Inflamed seborrheic keratosis | CPT/HCPCS: 17110; 99214 ==

== ENCOUNTER → 2024-01-20 08:48 | Outpatient (BNVA) | payer OTHER, SELFPAY | PROVIDERS: PCP Emergency Medicine Emergency Medical Services; Visit Provider Nurse Practitioner Family | DX: B07.8 Other viral warts (principal); L57.8 Other skin changes due to chronic exposure to nonionizing radiation; L81.4 Other melanin hyperpigmentation; L82.1 Other seborrheic keratosis | CPT/HCPCS: 99214 ==

== ENCOUNTER → 2024-02-22 09:21 | Outpatient (BNVA) | payer OTHER, SELFPAY | PROVIDERS: PCP Emergency Medicine Emergency Medical Services; Visit Provider Nurse Practitioner Family | DX: B07.8 Other viral warts (principal); L57.8 Other skin changes due to chronic exposure to nonionizing radiation; L81.4 Other melanin hyperpigmentation; L82.1 Other seborrheic keratosis; L82.0 Inflamed seborrheic keratosis | CPT/HCPCS: 17110; 99214 ==

== ENCOUNTER → 2024-03-22 09:17 | Outpatient (BNVA) | payer OTHER, SELFPAY | PROVIDERS: PCP Emergency Medicine Emergency Medical Services; Visit Provider Nurse Practitioner Family | DX: B07.8 Other viral warts (principal) | CPT/HCPCS: 99213 ==

== ENCOUNTER → 2024-04-12 09:32 | Outpatient (BNVA) | payer OTHER, SELFPAY | PROVIDERS: PCP Emergency Medicine Emergency Medical Services; Visit Provider Nurse Practitioner Family | DX: B07.8 Other viral warts (principal); L81.4 Other melanin hyperpigmentation | CPT/HCPCS: 99213 ==

== ENCOUNTER 2024-04-13 07:58 | Outpatient (CLI) | payer OTHER, SELFPAY ==
--- NOTE | 2024-04-13 08:30 | USCV_ITS ---
Isaiah Malcolm Age: 68 Gender: M : 1955 Exam Date: 04/13/2024 08:36 Ordering Phys: Tyra Ewing MD ([email or web address]) Technologist: USR Exam Location: [facility] [place]ication: ?aaa HISTORY: Diameter (cm) AP x Transverse x Length Velocity (cm/s) Waveform Prox Aorta: x 1.70 x 2.00 112.90 Triphasic Mid Aorta: x 1.80 x 1.90 66.30 Triphasic Distal Aorta: x 3.00 x 2.60 107.40 Triphasic Right Iliac Prox: x 0.51 x 0.96 134.80 Triphasic Left Iliac Prox: x 0.49 x 0.90 120.70 Triphasic Stent Prox Landing x x Aneurysmal Sac Max x x Lt Lat Sac Dim Rt Lat Sac Dim Stent Dist Landing x x Right Iliac Stent x x Left Iliac Stent x x Right Renal Art Left Renal Art FINDINGS: CONCLUSIONS Distal AAA measuring 3.0 x 2.6cm AP x Trans. Moderate atheromatous plaque Normal common iliac arteries Eliecer Cao MD (Electronically Signed) Final Date: 13 April 2024 10:01 S
--- NOTE | 2024-04-13 09:15 | USCV_ITS ---
Malcolm Colon Age: 68 Gender: M : 1955 Exam Date: 04/13/2024 08:06 Ordering Phys: Tyra Ewing MD ([email or web address]) Technologist: DENISE [place] [facility] [place]: cca disease Risk Factors: Previous Vascular Surgery: Right Brachial BP: / Left Brachial BP: / Right Left Velocity (cm/s) Spectral Plaque Velocity (cm/s) Spectral Plaque Syst/Diast Broadening Syst/Diast Broadening 78.90/ 20.60 Prox CCA 82.70 / 26.80 96.60/ 32.70 Mid CCA 84.70 / 26.80 74.70/ 21.70 Hetro Distal CCA 80.80 / 26.80 Hetro 54.40/ 17.70 Hetro Prox ICA 72.40 / 32.30 Hetro 46.60/ 16.60 Hetro Mid ICA 84.90 / 32.30 55.60/ 15.50 Distal ICA 82.00 / 29.00 85.00 ECA 71.90 0.70 ICA/CCA 1.10 Antegrade Vertebral Antegrade 31.90/ 10.00 cm/s 53.20/ 21.50 cm/s Tri Subclavian Tri 83.70 66.80 CONCLUSIONS Right ICA stenosis <50%. Moderate atheromatous plaque right carotid bulb/ICA. Left ICA stenosis <50%. Moderate atheromatous plaque left carotid bulb/ICA. Intimal thickening in the common carotid arteries and internal carotid arteries bilaterally Normal antegrade Doppler flow noted in the right vertebral artery. Normal antegrade Doppler flow noted in the left vertebral artery. Eliecer Cao MD (Electronically Signed) Final Date: 13 April 2024 09:56 S
== END 2024-04-13 07:59 | disposition home or self-care (01) ==
LOC: RAD 07:59
PROVIDERS: PCP Emergency Medicine Emergency Medical Services; Visit Provider Internal Medicine Cardiovascular Disease
DX: I65.23 Occlusion and stenosis of bilateral carotid arteries (principal); I71.9 Aortic aneurysm of unspecified site, without rupture; I10 Essential (primary) hypertension; Z72.0 Tobacco use; I35.0 Nonrheumatic aortic (valve) stenosis; E78.2 Mixed hyperlipidemia; I71.43 Infrarenal abdominal aortic aneurysm, without rupture; E03.9 Hypothyroidism, unspecified
CPT/HCPCS: 93880; 93978; 99214

== ENCOUNTER → 2024-07-07 08:22 | Outpatient (BNVA) | payer OTHER, SELFPAY | PROVIDERS: PCP Family Medicine; Referring Provider Family Medicine; Visit Provider Student in an Organized Health Care Education/Training Program | DX: Z12.11 Encounter for screening for malignant neoplasm of colon (principal) | CPT/HCPCS: 99204 ==

== ENCOUNTER → 2024-08-04 09:00 | Outpatient (BNVA) | payer OTHER, SELFPAY | PROVIDERS: PCP Family Medicine; Visit Provider Nurse Practitioner Family | DX: L82.1 Other seborrheic keratosis (principal); L81.4 Other melanin hyperpigmentation; L82.0 Inflamed seborrheic keratosis; L57.0 Actinic keratosis; D48.5 Neoplasm of uncertain behavior of skin | CPT/HCPCS: 11102; 17000; 17110; 99213 ==

== ENCOUNTER → 2024-08-15 08:11 | Outpatient (BNVA) | payer OTHER, SELFPAY | PROVIDERS: PCP Family Medicine; Visit Provider Family Medicine | DX: Z01.818 Encounter for other preprocedural examination (principal); I49.8 Other specified cardiac arrhythmias | CPT/HCPCS: 80053; 85025; 93005 ==

== ENCOUNTER 2024-08-22 07:08 | Day surgery (SDC) | payer OTHER, SELFPAY ==
[2024-08-22 07:31] VITALS: BP 116/62; PULSE 74; RESP 18; TEMP 36.3; O2SAT 93
[2024-08-22] MEDS: sodium chloride 0.9% 1,000 ML 30 ML IV (07:35)
--- NOTE | 2024-08-22 08:26 | W.PM.OPSFHP ---
Same Day Surgery H&P Indication for Procedure/HPI DATE OF PROCEDURE: August 22, 2024 CHIEF COMPLAINT/INDICATIONFOR SURGICAL PROCEDURE: Screening colonoscopy PREOP DIAGNOSIS: Screening colonoscopy PLANNED PROCEDURE: Operation Date: 08/22/24 08:15 Proposed Procedures p Colonoscopy / 23504, Z12.11, G0105(Not Applicable) - Nehemiah Gutierrez MD Medications/Allergies* Home Medications Medication Instructions Recorded Confirmed Type aspirin 81 mg tablet,delayed 81 mg PO DAILY 02/06/20 08/22/24 History release gabapentin 300 mg capsule 600 mg PO BID 02/06/20 08/22/24 History pantoprazole 40 mg tablet,delayed 40 mg PO BID 02/06/20 08/22/24 History release (Protonix) potassium gluconate 595 mg (99 mg) 595 mg PO DAILY 02/06/20 08/22/24 History tablet terazosin 2 mg capsule 4 mg PO DAILY 02/06/20 08/22/24 History cholecalciferol (vitamin D3) 25 25 mcg PO DAILY 07/30/21 08/22/24 History mcg (1,000 unit) capsule amlodipine 10 mg tablet 10 mg PO DAILY 08/17/24 08/22/24 History cetirizine 10 mg tablet 10 mg PO DAILY 08/17/24 08/22/24 History guaifenesin 400 mg tablet 400 mg PO Q4H PRN MUC 08/17/24 08/22/24 History levothyroxine 125 mcg tablet 125 mcg PO DAILY 08/17/24 08/22/24 History omega-3 fatty acids-vitamin E 1 cap PO DAILY 08/17/24 08/22/24 History 1,000 mg capsule sertraline 100 mg tablet 100 mg PO DAILY 08/17/24 08/22/24 History Allergies/Adverse Reactions Allergy/AdvReac Type Severity Reaction Status Date / Time chlorpromazine Allergy Unknown hallucinati Verified 08/15/24 08:16 [From Thorazine] ons cyclobenzaprine Allergy Unknown hallucinati Verified 08/15/24 08:15 [From Flexeril] ons nizatidine [From Axid] Allergy Unknown unknown Verified 08/15/24 08:14 rofecoxib [From Vioxx] Allergy hallucinati Verified 08/15/24 08:15 ons Current Medications: Generic Name Dose Route Start Last Admin Trade Name Freq PRN Reason Stop Dose Admin Sodium Chloride 1,000 mls @ 30 mls/hr 08/22/24 07:15 08/22/24 07:35 Sodium Chloride 0.9% IV 08/23/24 07:14 30 mls/hr .Q24H RON Administration Pertinent History/Comorbid Conditions* Medical History (Updated 04/03/24 @ 23:10 by Tyra Ewing MD) Ischial bursitis of right side SOB (shortness of breath) Carotid artery stenosis Aortic valve stenosis TAMMIE (obstructive sleep apnea) Hypertension Hyperlipidemia Hypothyroidism COPD (chronic obstructive pulmonary disease) Anxiety and depression Chronic back pain Surgical History (Updated 02/06/20 @ 12:57 by Tyra Ewing MD) History of toe surgery History of shoulder surgery History of hernia repair Family History (Updated 01/23/21 @ 10:33 by Lindsay Landry RN) Rheumatoid arthritis Brother Diabetes Mother CAD (coronary artery disease) Family/Other Suicide Father Cancer Family/Other Hypertension Polio Family/Other Stroke Family/Other Denies family history of Clotting disorder Dementia Chronic kidney disease (CKD) Anesthesia complication Bleeding disorder Lung disease Social History Smoking and tobacco/nicotine status: current every day tobacco/nicotine user cigarettes and smokeless tobacco Smokeless tobacco user: chewing tobacco Alcohol intake: former Year of sobriety/quit date alcohol: 1 yr Former alcohol use details: severe alcoholic Substance/Drug Use: current Pertinent Exam Findings alert, oriented x 3, clear to auscultation bilaterally, regular rate & rhythm and procedure specific exam findings Abdomen soft, nt, nd Recommendations Surgery/Procedure today Coding Level of Care Code Acute Code for Radhag Balta
--- NOTE | 2024-08-22 08:35 | ANES.PREANE2 ---
Pre-Anesthetic Assessment Height/Weight: Height 1.83 m Weight 99.79 kg Temp Pulse Resp BP Pulse Ox O2 Del Method 97.3 F L 74 18 116/62 93 Room Air 08/22/24 07:31 08/22/24 07:31 08/22/24 07:31 08/22/24 07:31 08/22/24 07:31 08/22/24 07:31 Preop Diagnosis: Screening colonoscopy Operation Date: 08/22/24 08:15 Proposed Procedures p Colonoscopy / 90119, Z12.11, G0105(Not Applicable) - Nehemiah Gutierrez MD Was Beta Diamante taken within 24 hours: Yes Was Clonidine taken within 24 hours: N/A Last intake: Intake Last Liquid Date 08/21/24 Last Liquid Time 20:00 Last Solid Date 08/20/24 Last Solid Time 18:30 Social Tobacco Smokes weed daily Exam alert, oriented x 3, clear to auscultation bilaterally and regular rate & rhythm Airway Submandibular: within normal limits Cervical ROM: within normal limits Dentition: full History/ROS No significant history except as noted and No significant complaints CV/HEM Hypertension, Murmur and Peripheral Vascular Disease Aortic stenosis None reported Hepatic None reported GI Gastroesophageal Reflux Disease Metabolic Thyroid Disease Musc/skel Lower Back Pain Neuropsych Anxiety and Depression Anesthetic Plan ASA status: 3 Anesthesia: Anesthesia Evaluation and MAC Risk of > 500 ml blood loss (7ml/kg in children): No Medications/Allergies Home Medications Medication Instructions Recorded Confirmed Last Taken Type aspirin 81 mg tablet,delayed 81 mg PO DAILY 02/06/20 08/22/24 08/16/24 History release gabapentin 300 mg capsule 600 mg PO BID 02/06/20 08/22/24 08/22/24 History pantoprazole 40 mg tablet,delayed 40 mg PO BID 02/06/20 08/22/24 08/22/24 History release (Protonix) potassium gluconate 595 mg (99 mg) 595 mg PO DAILY 02/06/20 08/22/24 08/22/24 History tablet terazosin 2 mg capsule 4 mg PO DAILY 02/06/20 08/22/24 08/22/24 History lisinopril 20 1 tab PO DAILY #90 tabs 04/02/20 08/22/24 08/21/24 Rx mg-hydrochlorothiazide 12.5 mg tablet pravastatin 80 mg tablet 80 mg PO DAILY #90 tabs 05/13/20 08/22/24 08/22/24 Rx ezetimibe 10 mg tablet (Zetia) 10 mg PO DAILY #90 tabs 01/24/21 08/22/24 08/22/24 Rx cholecalciferol (vitamin D3) 25 25 mcg PO DAILY 07/30/21 08/22/24 08/22/24 History mcg (1,000 unit) capsule amlodipine 10 mg tablet 10 mg PO DAILY 08/17/24 08/22/24 08/22/24 History cetirizine 10 mg tablet 10 mg PO DAILY 08/17/24 08/22/24 08/22/24 History guaifenesin 400 mg tablet 400 mg PO Q4H PRN MUC 08/17/24 08/22/24 08/22/24 History levothyroxine 125 mcg tablet 125 mcg PO DAILY 08/17/24 08/22/24 08/22/24 History omega-3 fatty acids-vitamin E 1 cap PO DAILY 08/17/24 08/22/24 08/22/24 History 1,000 mg capsule sertraline 100 mg tablet 100 mg PO DAILY 08/17/24 08/22/24 08/22/24 History Allergies Allergy/AdvReac Type Severity Reaction Status Date / Time chlorpromazine Allergy Unknown hallucinati Verified 08/15/24 08:16 [From Thorazine] ons cyclobenzaprine Allergy Unknown hallucinati Verified 08/15/24 08:15 [From Flexeril] ons nizatidine [From Axid] Allergy Unknown unknown Verified 08/15/24 08:14 rofecoxib [From Vioxx] Allergy hallucinati Verified 08/15/24 08:15 ons Current Medications Generic Name Dose Route Start Last Admin Trade Name Freq PRN Reason Stop Dose Admin Sodium Chloride 1,000 mls @ 30 mls/hr 08/22/24 07:15 08/22/24 07:35 Sodium Chloride 0.9% IV 08/23/24 07:14 30 mls/hr .Q24H RON Administration PFSH Anesthesia Medical History Ischial bursitis of right side SOB (shortness of breath) Carotid artery stenosis Aortic valve stenosis TAMMIE (obstructive sleep apnea) Hypertension Hyperlipidemia Hypothyroidism COPD (chronic obstructive pulmonary disease) Anxiety and depression Chronic back pain Surgical History History of toe surgery History of shoulder surgery History of hernia repair Family History Family/Other CAD (coronary artery disease) Cancer Stroke Polio Father Suicide Mother Diabetes Brother Rheumatoid arthritis Other Hypertension Denies family history of Clotting disorder Dementia Chronic kidney disease (CKD) Anesthesia complication Bleeding disorder Lung disease Social History Smoking and tobacco/nicotine status: current every day tobacco/nicotine user cigarettes and smokeless tobacco Smokeless tobacco user: chewing tobacco Alcohol intake: former Year of sobriety/quit date alcohol: 1 yr Former alcohol use details: severe alcoholic Substance/Drug Use: current Data Anesthesia Cardiac Studies: Echocardiogram 05/06/23 Echocardiogram Ultrasound 04/11/21
[2024-08-22 09:35] VITALS: BP 86/60; PULSE 61; RESP 20; TEMP 36.1; O2SAT 92
[2024-08-22 09:50] VITALS: BP 110/65; PULSE 52; RESP 18; O2SAT 95
--- NOTE | 2024-08-22 10:15 | ANE.PACU2 ---
Inpatient post-anesthesia follow up: Airway intact: Yes Vital signs: Temperature 97 F Pulse Rate 52 Respiratory Rate 18 Blood Pressure 110/65 Pulse Oximetry 95 Oxygen Delivery Me thod Room Air Oxygen Flow Rate 4 Fraction of Inspir ed Oxygen Hydration adequate: Yes Nausea and vomiting: No Pain level: 1 Mental status: Baseline
== END 2024-08-22 10:15 | disposition home or self-care (01) ==
PROVIDERS: PCP Family Medicine; Visit Provider Student in an Organized Health Care Education/Training Program
PROC: 0DJD8ZZ Inspection of Lower Intestinal Tract, Via Natural or Artificial Opening Endoscopic (ICD-10-PCS; CPT 45378; principal; 2024-08-22 08:15)
DX: Z12.11 Encounter for screening for malignant neoplasm of colon (principal); D12.2 Benign neoplasm of ascending colon; D12.8 Benign neoplasm of rectum; G47.33 Obstructive sleep apnea (adult) (pediatric); I10 Essential (primary) hypertension; E78.5 Hyperlipidemia, unspecified; E03.9 Hypothyroidism, unspecified; J44.9 Chronic obstructive pulmonary disease, unspecified; F17.210 Nicotine dependence, cigarettes, uncomplicated; F17.220 Nicotine dependence, chewing tobacco, uncomplicated; K21.9 Gastro-esophageal reflux disease without esophagitis; Z79.82 Long term (current) use of aspirin
CPT/HCPCS: 45380; 45385; 88305; J2704; J7030

== ENCOUNTER → 2024-09-04 10:15 | Outpatient (BNVA) | payer OTHER, SELFPAY | PROVIDERS: PCP Family Medicine; Visit Provider Student in an Organized Health Care Education/Training Program | DX: Z09 Encounter for follow-up examination after completed treatment for conditions other than malignant neoplasm (principal) | CPT/HCPCS: 99213 ==

== ENCOUNTER → 2024-10-04 09:44 | Outpatient (BNVA) | payer OTHER, SELFPAY | PROVIDERS: PCP Family Medicine; Visit Provider Nurse Practitioner Family | DX: B07.8 Other viral warts (principal); L82.1 Other seborrheic keratosis; L81.4 Other melanin hyperpigmentation; L84 Corns and callosities; M67.40 Ganglion, unspecified site | CPT/HCPCS: 99214 ==

== ENCOUNTER → 2024-10-05 15:26 | Outpatient (BNVA) | payer OTHER, SELFPAY | PROVIDERS: PCP Family Medicine; Visit Provider Internal Medicine Cardiovascular Disease | DX: I35.0 Nonrheumatic aortic (valve) stenosis (principal); E78.2 Mixed hyperlipidemia; I95.89 Other hypotension; I71.43 Infrarenal abdominal aortic aneurysm, without rupture | CPT/HCPCS: 99214 ==

== ENCOUNTER → 2025-04-05 09:31 | Outpatient (BNVA) | payer OTHER, SELFPAY | PROVIDERS: PCP Family Medicine; Visit Provider Nurse Practitioner Family | DX: L81.4 Other melanin hyperpigmentation (principal); M20.42 Other hammer toe(s) (acquired), left foot; L84 Corns and callosities; L82.1 Other seborrheic keratosis; L57.8 Other skin changes due to chronic exposure to nonionizing radiation | CPT/HCPCS: 17000; 17110; 99213 ==

== ENCOUNTER → 2025-05-04 09:14 | Outpatient (BNVA) | payer OTHER, SELFPAY | PROVIDERS: PCP Family Medicine; Visit Provider Nurse Practitioner Family | DX: I71.43 Infrarenal abdominal aortic aneurysm, without rupture (principal); I35.0 Nonrheumatic aortic (valve) stenosis; I95.9 Hypotension, unspecified; E78.5 Hyperlipidemia, unspecified; Z79.82 Long term (current) use of aspirin; F17.210 Nicotine dependence, cigarettes, uncomplicated; F17.220 Nicotine dependence, chewing tobacco, uncomplicated | CPT/HCPCS: 99213 ==

== ENCOUNTER 2025-05-17 07:47 | Outpatient (CLI) | payer OTHER, SELFPAY ==
--- NOTE | 2025-05-17 08:00 | USCV_ITS ---
Malcolm Colon Age: 69 Gender: M : 1955 Exam Date: 05/17/2025 07:55 Ordering Phys: Ivis Calderon NP Technologist: ABAD [place] [facility] [place]: AAA HISTORY: Diameter (cm) AP x Transverse x Length Velocity (cm/s) Waveform Prox Aorta: 1.80 x 2.20 x 73.90 Triphasic Mid Aorta: 1.70 x 2.10 x 64.10 Triphasic Distal Aorta: 2.40 x 3.00 x 111.70 Triphasic Right Iliac Prox: 0.92 x 1.11 x 157.60 Triphasic Left Iliac Prox: 1.09 x 1.17 x 139.60 Triphasic Stent Prox Landing x x Aneurysmal Sac Max x x Lt Lat Sac Dim Rt Lat Sac Dim Stent Dist Landing x x Right Iliac Stent x x Left Iliac Stent x x Right Renal Art Left Renal Art FINDINGS: CONCLUSIONS Distal abdominal aorta slightly aneurysmal measuring 2.4 x 3.0cm ap x trans stable since 04/13/24 Normal proximal iliac arteries Moderate atheromatous disease Eliecer Cao MD (Electronically Signed) Final Date: 17 May 2025 09:55 S
== END 2025-05-17 07:48 | disposition home or self-care (01) ==
PROVIDERS: PCP Family Medicine; Visit Provider Nurse Practitioner Family
DX: I71.43 Infrarenal abdominal aortic aneurysm, without rupture (principal); I70.0 Atherosclerosis of aorta
CPT/HCPCS: 93978

== ENCOUNTER → 2025-10-09 09:52 | Outpatient (BNVA) | payer OTHER, SELFPAY | PROVIDERS: PCP Family Medicine; Visit Provider Nurse Practitioner Family | DX: L81.4 Other melanin hyperpigmentation (principal); L82.1 Other seborrheic keratosis; L57.8 Other skin changes due to chronic exposure to nonionizing radiation; D48.5 Neoplasm of uncertain behavior of skin | CPT/HCPCS: 11102; 99213 ==